=== PATIENT | female | born 1995 | race Two or more races ===

== ENCOUNTER 2017-12-10 23:40 | Emergency (ER) | payer BC ==
[2017-12-10 23:49] VITALS: BP 122/78
--- NOTE | 2017-12-11 00:21 | EDPHY ---
H & P Stated Complaint: cough, fever, SOB Time Seen by Provider: 12/11/17 00:07 HPI/ROS: Chief Complaint: Cough, congestion, fever HPI: 22-year-old woman presenting with 2 days of upper respiratory congestion, mild sore throat, cough, fever to 100.3 at home. She has been taking daytime and nighttime cold medicine and Afrin nasal spray with minimal relief. Tonight when breathing she felt a burning sensation in her throat. Cough is dry and nonproductive. She is able to take a deep breath without any difficulty. No chest pain. No abdominal pain. Mild headache. No neck stiffness or pain. ROS: 10 systems were reviewed and were negative except those elements noted in the HPI. PMH: Chronic sinusitis Social History: No smoking, no alcohol, no recreational drug use Family History: non-contributory Physical Exam: Gen: Awake, Alert, No Distress HEENT: No sinus tenderness to percussion Ears: Normal Nose: no rhinorrhea Eyes: PERRLA, EOMI Mouth: Moist mucosa no oral pharyngeal erythema or edema Neck: Supple, no JVD Chest: nontender, lungs clear to auscultation Heart: S1, S2 normal, no murmur Abd: Soft, non-tender, no guarding Back: no CVA tenderness, no midline tenderness Ext: no edema, non-tender Skin: no rash Neuro: CN II-XII intact, Sensation grossly intact, Strength 5/5 in bilateral upper and lower extremities - Personal History LMP (Females 10-55): 1-7 Days Ago Current Tetanus Diphtheria and Acellular Pertussis (TDAP): Yes - Medical/Surgical History Hx Asthma: No Hx Chronic Respiratory Disease: No Hx Diabetes: No Hx Cardiac Disease: No Hx Renal Disease: No Hx Cirrhosis: No Hx Alcoholism: No Hx HIV/AIDS: No Hx Splenectomy or Spleen Trauma: No - Social History Smoking Status: Never smoked Constitutional: Initial Vital Signs Temperature (C) 36.6 C 12/10/17 23:47 Heart Rate 86 12/10/17 23:47 Respiratory Rate 20 12/10/17 23:47 Blood Pressure 122/78 H 12/10/17 23:47 O2 Sat (%) 98 12/10/17 23:47 O2 Delivery Mode Room Air Allergies/Adverse Reactions: No Known Allergies Allergy (Unverified 12/10/17 23:47) Medical Decision Making ED Course/Re-evaluation: 22-year-old healthy female with viral URI symptoms for the last couple days. She is afebrile here. Normal oxygen saturations. No focal bacterial infection source found. She will continue symptomatic care. No indication for antibiotics at this time. Will refer for outpatient follow-up. Departure - Departure Disposition: Home, Routine, Self-Care Clinical Impression: Viral URI Condition: Good Instructions: Upper Respiratory Infection (ED) Additional Instructions: Alternate acetaminophen (1000 mg) with ibuprofen (400 mg) every 4 hours as needed for fevers, chills, aches or pain. You may continue taking the [id number] cough and cold medication. Do not use the Afrin nasal spray for longer than 3 days. Follow up with primary care physician in 3-4 days if symptoms are not improving. Return to the emergency department for worsening shortness of breath, high fevers, uncontrolled vomiting, or any other concerns. Referrals: Apollo Landers MD [Medical Doctor] - As per Instructions
== END 2017-12-11 00:44 | disposition home or self-care (01) ==
DX: J06.9 Acute upper respiratory infection, unspecified (principal)